=== PATIENT | male | born 1965 | race Caucasian/White ===

== ENCOUNTER 2024-04-24 12:11 | Emergency (ER) | payer MEDICARE, OTHER ==
[2024-04-24] MEDS ORDERED: Lidocaine 1% w/Epinephrine 1:100K 20 ML VIAL ONE (13:09)
[2024-04-24 13:28] LABS: Lipase 18 U/L (8-78)
[2024-04-24 13:31] LABS: Acetaminophen Less than 10 mcg/mL (Less than 10); Alcohol 205.3 mg/dL (Less than 10); Salicylate Less than 8.0 mg/dL (Less than 8.0)
[2024-04-24 13:34] LABS: Amphetamine Not Detected (NotDetected); Barbiturates Screen Not Detected (NotDetected); Benzodiazepine Screen Detected (NotDetected); Cocaine Metabolite Screen Not Detected (NotDetected); Methadone Not Detected (NotDetected); Methamphetamine Not Detected (NotDetected); Opiate Screen Not Detected (NotDetected); Oxycodone Screen Not Detected (NotDetected); Phencyclidine (PCP) Not Detected (NotDetected); THC/Cannabinoid Screen Not Detected (NotDetected); Tricyclic Screen Not Detected (NotDetected)
[2024-04-24 13:35] LABS: Troponin I Less than 0.010 ng/mL (< 0.028)
[2024-04-24 13:47] LABS: #Basophils 0.03 10x3/uL (0.0-0.2); %Basophils 0.8 % (0.0-1.0); %Eosinophils 0.8 % (0.0-10.0); %Lymphocytes 41.7 % (21.0-51.0); %Monocytes 8.3 % (0.0-10.0); %Neutrophils 47.4 % (42.0-75.0); Hematocrit 20.3 % (42.0-52.0); Hemoglobin 6.5 g/dL (14.0-18.0); Mean Corpuscular Hemoglobin 33.3 pg (27.0-31.0); Mean Corpuscular Volume 104.1 fL (78.0-98.0); Mean Platelet Volume 8.5 fL (7.4-10.4); Platelet Count 117 10x3/uL (130-400); RBC Distribution Width 13.3 % (11.5-14.5); Red Blood Cell (RBC) Count 1.95 mill/uL (4.70-6.10)
[2024-04-24 13:50] LABS: Bacteria/HPF None Seen HPF (None Seen); Bilirubin Negative (Negative); Blood, Urine Negative (Negative); CAUTI Indications for Culture Fever or rigors; Clarity Clear (Clear); Glucose, Urine (Dipstick) Normal (Negative); Ketone, Urine Negative (Negative); Leukocyte Negative Leu/uL (Negative); Nitrite Negative (Negative); Protein, Urine (Dipstick) Negative (Neg-Trace); RBC/HPF 0-3 HPF (0-3); Specific Gravity, Urine 1.001 (1.002-1.036); Squamous Epithelial None Seen HPF (0-3); Urobilinogen Normal mg/dL (Less than 2); WBC/HPF 0-3 HPF (0-3)
[2024-04-24 13:54] LABS: Urine Culture Reflex No No
[2024-04-24 14:29] LABS: Platelet Adequacy Comment Platelets Decreased
[2024-04-24 14:55] LABS: ALT (SGPT) 76 U/L (8-55); AST (SGOT) 74 U/L (5-34); Albumin 3.4 g/dL (3.5-5.0); Alkaline Phosphatase 61 U/L (40-110); Anion Gap 15 mmol/L (10-20); BUN (Urea Nitrogen) 15 mg/dL (8.4-25.7); Bilirubin, Total 0.3 mg/dL (0.2-1.2); Calc. Creatinine Clearance 0 mL/min (70-130); Carbon Dioxide 24 mmol/L (22-29); Chloride 111 mmol/L (98-107); Estimated GFR 88; Globulin 2.5 g/dL (2.4-3.5); Glucose 86 mg/dL (70-105); Protein, Total 5.9 g/dL (6.0-8.3); Sodium 146 mmol/L (136-145)
== END 2024-04-24 15:54 | disposition home or self-care (01) ==
LOC: ERS 12:11
DX: S01.81XA Laceration without foreign body of other part of head, initial encounter (principal); D64.9 Anemia, unspecified; F10.129 Alcohol abuse with intoxication, unspecified; R41.82 Altered mental status, unspecified; W01.10XA Fall on same level from slipping, tripping and stumbling with subsequent striking against unspecified object, initial encounter
CPT/HCPCS: 12013; 36415; 70450; 71045; 80053; 80306; 80307; 81001; 82140; 83690; 84484; 85025; 93005